=== PATIENT | female | born 1975 | race Caucasian/White ===

== ENCOUNTER 2016-07-25 14:32 | Emergency (ER) | payer OTHER ==
[2016-07-25 15:51] LABS: HEMOGLOBIN 13.2 gm/dl (12.3-15.3); RED BLOOD COUNT 4.43 M/UL (4.00-5.10); WHITE BLOOD COUNT 9.8 K/UL (4.5-11.0)
[2016-07-25 16:08] LABS: BUN/CREATININE RATIO 17 (0-10)
== END 2016-07-25 20:15 | disposition home or self-care (01) ==
LOC: ER1 14:32
PROVIDERS: Emergency Medicine
DX: R22.0 Localized swelling, mass and lump, head (principal); K08.109 Complete loss of teeth, unspecified cause, unspecified class; I10 Essential (primary) hypertension
CPT/HCPCS: 70487; 80048; 84703; 85025; 87040; 96361; 96365; 99284; J7050; Q9962